=== PATIENT | male | born 1995 | race Caucasian/White ===

== ENCOUNTER 2023-10-23 07:22 | Emergency (ER) | payer OTHER ==
[~2023-10-23] VITALS: Ht 193 cm; Wt 100.0 kg
[2023-10-23 07:41] VITALS: TEMP 98.4
[2023-10-23] MEDS ORDERED: IBUP-1554 PO (08:55)
[2023-10-23 09:30] VITALS: BP 120/70; PULSE 70; RESP 12
== END 2023-10-23 09:45 | disposition home or self-care (01) ==
LOC: EMS 07:23
DX: S83.92XA Sprain of unspecified site of left knee, initial encounter (principal); X50.3XXA Overexertion from repetitive movements, initial encounter; Y93.89 Activity, other specified; Y92.89 Other specified places as the place of occurrence of the external cause; Y99.8 Other external cause status
CPT/HCPCS: 99283

== ENCOUNTER 2025-06-11 18:10 | Emergency (ER) | payer OTHER ==
[~2025-06-11] VITALS: Ht 193 cm; Wt 109.1 kg
[~2025-06-11 18:10] MED LIST: IBUP-1554 PO
[2025-06-11 18:29] LABS: PLATELET COUNT (AUTO) 231 K/uL (150-450); RED BLOOD CELL COUNT(AUTO) 5.20 MIL/uL (4.50-5.90); RED CELL DISTRIBUTION WIDTH 13.2 % (11.5-14.5); WHITE BLOOD COUNT (AUTO) 6.0 K/uL (4.5-11.0)
[2025-06-11 18:38] LABS: CALCIUM, TOTAL 8.6 mg/dL (8.8-10.5); CREATININE 0.83 mg/dL (0.60-1.30); GLOMERULAR FILTR. RATE CALC > 60 mL/min (>60); GLUCOSE,RANDOM 112 mg/dL (70-110); SODIUM SERUM 144 mmol/L (136-145); UREA NITROGEN, BLOOD 8 mg/dL (7-18)
[2025-06-11 18:50] LABS: TROPONIN I-HIGH SENSITIVITY 4 ng/L (<76)
[2025-06-11 18:59] LABS: ASPARTATE AMINOTRANSFERASE 21.0 U/L (15-37)
[2025-06-11 19:10] LABS: TOTAL PROTEIN, SERUM 7.0 g/dL (6.4-8.2)
[2025-06-11] MEDS: SODIUM CHLORIDE 0.9% 1,000 ML IV ONE (19:43)
[2025-06-11 20:21] VITALS: TEMP 97.905272
[2025-06-11 20:25] LABS: APPEARANCE,URINE CLEAR (CLEAR); GLUCOSE, URINE (UA) NEGATIVE (NEGATIVE); LEUKOCYTE ESTERASE ,URINE NEGATIVE (NEGATIVE); NITRATE,URINE NEGATIVE (NEGATIVE); OCCULT BLOOD,URINE NEGATIVE (NEGATIVE); SPECIFIC GRAVITIY, URINE 1.017 (1.003-1.030)
[2025-06-11 21:28] VITALS: BP 120/81; PULSE 60; RESP 18; O2SAT 99
== END 2025-06-11 22:21 | disposition home or self-care (01) ==
LOC: EMS 18:12
DX: R42 Dizziness and giddiness (principal); E86.0 Dehydration; T67.5XXA Heat exhaustion, unspecified, initial encounter; Z79.899 Other long term (current) drug therapy; X58.XXXA Exposure to other specified factors, initial encounter
CPT/HCPCS: 99285; 96360; 80048; 80076; 81003; 84484; 85025; 36415; 93005; J7030